=== PATIENT | female | born 1970 | race Caucasian/White ===

== ENCOUNTER 2025-06-29 13:35 | Inpatient (IN) | payer OTHER, SELFPAY ==
[2025-06-29 09:16] VITALS: BP 124/78; BMI 30.1
--- NOTE | 2025-06-29 09:28 | ED.MUSCINJ ---
HPI-Injury
General
Chief Complaint: Fall
Source: patient and ambulance crew
Exam Limitations: none
Time Seen by Provider: 06/29/25 09:18
Nursing documentation reviewed up to this point in time: agreed with
History of Present Illness-Injury
Initial Injury comments:
Note:
CHIEF COMPLAINT(S)
Right arm pain following a fall.
HISTORY OF PRESENT ILLNESS
The patient is a 54-year-old female who presents with pain in the right arm following a recent fall. While walking into a room, the patient had her right arm extended and fell, causing the arm to be pulled behind her. She reports that the injury
appeared to have displaced the arm to a significant extent, causing immediate pain and loss of mobility, particularly in the upper arm and elbow region. The patient describes the sensation as her arm having 'a mind of its own' indicating loss of
voluntary control. Pain is mainly localized to the upper arm and elbow, although she denies significant shoulder discomfort. Upon examination, there is noticeable swelling in the upper arm, specifically around the region where a fracture of the
humerus is suspected. The patient experiences discomfort upon palpation in this area.
SOCIAL HISTORY
The patient reports having a sensitive stomach, which might be exacerbated by certain medications.
ALLERGIES
The patient denies allergies but notes having a sensitive stomach.
PHYSICAL EXAM
General: Alert, no acute distress.
Skin: Warm, dry.
Head: Normocephalic, atraumatic.
Neck: Supple, trachea midline.
Eyes, Ears, Nose, and Throat: Oral mucosa moist.
Cardiovascular: Normal peripheral perfusion, No edema.
Respiratory: Respirations are non-labored.
Gastrointestinal: Abdomen nondistended
Back: Normal range of motion, Normal alignment.
Musculoskeletal: Tenderness and swelling noted in the right upper arm, suggestive of a fracture. Normal range of motion in other areas.
Neurological: Alert and oriented to person, place, time, and situation, No focal neurological deficit observed.
Psychiatric: Cooperative, appropriate mood & affect.
PLAN
- Obtain x-rays of the right arm to assess for fractures, specifically at the upper arm or humerus.
- Administer Zofran (ondansetron) for nausea due to sensitivity to medications and prepare to administer morphine for pain management.
- Evaluate for possible elbow involvement or shoulder dislocation based on imaging.
- Monitor the patient closely for signs of increased pain or swelling.
DIFFERENTIAL DIAGNOSIS
The Differential Diagnosis includes, in no particular order and is not limited to:
1. Humerus fracture
2. Elbow dislocation
3. Shoulder dislocation
4. Soft tissue injury or contusion
5. Ligament sprain or tear
6. Radial head fracture
7. Olecranon fracture
8. Tendon injury or rupture
9. Rotator cuff injury
10. Nerve injury secondary to trauma (e.g., radial nerve injury)
CARE-UPDATE
06/29/25 - 10:45
X-ray indicates angulated distal-right humeral diaphyseal fracture. Discussed plan with orthopedics, Dr. Juan, who will perform surgery tomorrow and place a coaptation splint post-operatively.
Disposition:
SUMMARY OF ENCOUNTER
The patient is a 54-year-old female who presented to the emergency department with significant pain in the right arm following a fall. The physical examination indicated swelling and tenderness in the upper arm, raising suspicion for a fracture. An
x-ray confirmed an angulated fracture of the distal right humeral diaphysis. The patient reported having a sensitive stomach, impacting the choice of medications. Pain was managed cautiously with morphine and ondansetron for nausea. Consulting
orthopedics, a plan was made for surgical intervention the following day, with a CT scan requested pre-operatively to further evaluate the injury.
DISPOSITION
Admit to hospitalists.
ASSESSMENT
The patient has an acute angulated distal right humeral diaphyseal fracture with good condition; nerve-vascular integrity is maintained, and there are no signs of compartment syndrome.
MANAGEMENT OF THE PATIENTS CARE WAS DISCUSSED WITH
Dr. Juan in orthopedics, who will conduct surgical repair and procedure planning.
PLAN
Orthopedics to conduct surgery on the fractured distal humerus tomorrow. A CT scan has been requested pre-operatively. Continue pain management to ensure the patient remains comfortable until surgery.
INDEPENDENT REVIEW OF LABS AND INTERPRETATION OF TESTS
My independent interpretation of the X-ray indicates an angulated distal-right humeral diaphyseal fracture.
MEDICATION RECONCILIATION
Administered medications include ondansetron for nausea and morphine for pain management.
MEDICAL DECISION MAKING
Number and Complexity of Problems Addressed:
Chronic conditions affecting care: The patient reports a sensitive stomach which requires careful consideration of medications administered. Differential diagnosis includes humerus fracture, elbow dislocation, shoulder dislocation, soft tissue
injury, ligament sprain/tear, radial head fracture, olecranon fracture, tendon injury, rotator cuff injury, and nerve injury.
Data:
Category 1
- X-ray independently interpreted, confirming a distal humeral diaphyseal fracture.
Category 3
- Discussion of management with Dr. Juan in orthopedics regarding surgical intervention.
Risk:
Prescription medication management for pain control with morphine and antiemetic ondansetron due to the patients sensitive stomach. Surgery planned for fracture repair.
DIAGNOSIS
Angulated distal-right humeral diaphyseal fracture (ICD-10: S42.499A).
Past History
Past History
ED Past Medical History: Other (Pre eclampsia); Negative Asthma, CAD or Cancer
ED Past Surgical History: ; Negative Appendectomy, Bowel resection or Brain
Social History
Tobacco: Non-smoker
Alcohol: Occasional
Drug: Former user
Personal:
Living: with family
Employment: Employed
Family History
Family History: Negative Diabetes, Hypertension, Early CAD, CAD, Asthma or Cancer
Phy Exam
Physical Exam
Physical Exam:
.
Injury Course
Orders/Labs/Results
Orders:
Orders
06/29/25 09:25
Morphine Sulfate 4 mg IV NOW STA
Ondansetron Injectable [Zofran] 4 mg IV NOW STA
CR Elbow - Right Min 2 View Urgent
Reason For Exam: right distal humerus/elbow pain, fall
Humerus, Right 2 Views [CR Humerus - Right Min 2 View*] Urgent
Comment:
Reason For Exam: right distal humerus/elbow pain, fall
06/29/25 10:25
IV Insert/Care/Rem.- Treatment PRN
Splints/Slings/Crut- Treatment ONCE
Location: Right
Type of Splint: Other
Comment: co-aptation splint
06/29/25 10:26
CT Upper Ext W/o Iv Cont Rt Urgent
Comment:
Reason For Exam: right humerus pain, swelling, fracture seen
06/29/25 10:46
Dicyclomine [Bentyl] 20 mg PO NOW STA
06/29/25 11:05
Type+Screen Urgent
Complete Blood Count/With Diff Urgent
06/29/25 11:07
HYDROmorphone [Dilaudid] 1 mg IV NOW STA
06/29/25 11:32
Basic Metabolic Panel Urgent
06/29/25 12:55
HYDROmorphone [Dilaudid] 0.5 mg IV NOW STA
06/29/25 12:58
Admit/Transfer Patient As Directed
Co-Sign Provider:
Level of Care: Inpatient admission
Assign to:: Medical/Surgical
Physician / Group: Mikayla Ruiz
Diagnosis: right displaced humerus fracture
Reason for Hospitalization: right displaced humerus fracture
Expected length of stay greater than two midnights?: Yes
ELOS- Estimated Length of Stay in days: 3
I certify the patient meets the requirements for IP care: Yes
PRN Pain Medication Management As Directed
May give lesser potent ordered pain med per pt: Yes
preference::
Protocol:: Medication orders for pain may be administered in a
manner that supports deferring to patient preference
when the pt is:
- Requesting an ordered lesser potent pain medication.
Least to most potent pain medications are defined
as: acetaminophen < NSAID < tramadol < opioids
(morphine, oxycodone, hydromorphone).
- Requesting a lesser dose of the same medication IF
ORDERED.
- Requesting a less intrusive route of administration
if both routes are prescribed by the provider (PO <
IV).
06/29/25 12:59
Code Status As Directed
Resuscitation Status: Full Code
06/29/25 13:01
EKG [Electrocardiogram (*1)] Routine
Reason for Study: QTc Monitoring
06/30/25 Breakfast
NPO
Allow oral meds: Yes
Allow clear liquids: Sips of Clears
NPO for procedure after (time): after mn for OR 06/30
CeFAZolin 2 GRAM [Ancef] 2 grams in 10 ml IV PRE PROCEDURE
Abnormal Lab Results
06/29/25
11:05
WBC 14.5 H 10^3/uL
(4.8-10.8)
MCHC 32.1 L g/dL
(33.0-37.0)
RDW 14.8 H %
(11.5-14.5)
Plt Count 410 H 10^3/uL
(130-400)
Abs Immat Gran (auto) 0.1 H 10^3/uL
(0-0.05)
Absolute Neuts (auto) 12.4 H 10^3/uL
(1.4-6.5)
Immature Gran % 0.6 H %
(0-0.5)
Neutrophils % 85.2 H %
(42.2-75.2)
Lymphocytes % 9.2 L %
(20.5-51.1)
06/29/25 11:05
Procedures
Splinting/Sling Placement
Right Upper Arm:
Procedure completed by: Tee/Ania
Pre-splint extermity exam: good alignment
Type of splint: other (Co aptation splint)
Splint material: fiberglass
Splint checked by provider?: Yes
Type of sling: sling fitted
Normal distal neurovascular exam?: Yes
*Pulse Oximetry
SaO2: 100
Oxygen Mode of Delivery: Room air
Patient hypoxic: no
*Critical Care Note
Total Time (30-74mins, 75-104mins- exclusive of procedures): Not Applicable
ED Attending Note
-
Portions of this chart may have been created with voice recognition software.� Occasional wrong word or��sound alike� substitutions may have occurred due to the inherent limitations of voice recognition software.
Discharge Plan
Departure
Patient Disposition: Admit
Date of Disposition: 06/29/25
Time of Disposition: 10:27
Admit to: Med/Surg
Presentation/result/management discussed w/ accepting MD/DO: Hospitalist
Patient with high blood pressure during this ER visit?: Yes
Condition: Good
Discharge Problem:
Closed right humeral fracture
Interventions
Interventions:
*General Assessment Last Done: 06/29/25 09:16
*Neglect/Abuse Screening Last Done: 06/29/25 09:35
ED-Musculoskeletal Assessment Last Done: 06/29/25 09:23
ED- Neurological Assessment Last Done: 06/29/25 09:23
ED-Skin Assessment Last Done: 06/29/25 09:23
[2025-06-29] MEDS: MORPHINE SULFATE 4 MG IV (09:33)
[2025-06-29] MEDS: ZOFRAN 4 MG IV ×2 (09:33→21:15)
[2025-06-29] MEDS: BENTYL 20 MG PO ×2 (11:10→16:47)
[2025-06-29] MEDS: DILAUDID 1 MG IV ×4 (11:17→22:54)
[2025-06-29 11:18] LABS: Hematocrit 40.5 % (37.0-47.0); Hemoglobin 13.0 g/dL (12.0-16.0); Mean Corp Hgb Conc. 32.1 g/dL (33.0-37.0); Mean Corpuscular Volume 84.7 fL (81.0-99.0); Nucleated Red Blood Cells % 0 %; Platelet Count 410 10^3/uL (130-400); Red Cell Dist. Width 14.8 % (11.5-14.5)
--- NOTE | 2025-06-29 12:06 | CON.ORTHO ---
Consultation
-
Date/Time Consultation Requested: 06/29/2025; time unknown
Date/Time Consultation Performed: 06/29/2025; 1200
Requesting Provider: Marquise Oliveira
Performing Provider: Phoebe Barcenas PA-C for Dr. Addie Coronel
Reason for Consultation: Right humerus fracture
Consultation - Orthopedics
History
Ms. Cee is a 54 year old female with PMH of HTN and migraines seen today for her right arm. Her family members are at the bedside. She reports she slipped on leaves while walking into work today and landed with her arm outstretched behind her.
She reports immediate onset of pain, and loss of voluntary movement of the arm. She was brought to via EMS where x-rays revealed a humeral shaft fracture. She does report quite a bit of pain and discomfort at present. She denies pain elsewhere.
She lives independently and works as a clinical social worker. She denies PMH of DVT, CVA, IL or DM. She denies known history of difficulty with anesthesia.
Allergies / Home Medications
Allergy/AdvReac Type Severity Reaction Status Date / Time
shellfish derived Allergy Unknown Verified 06/29/25 09:24
�Medication �Instructions �Recorded
amlodipine 5 mg tablet (Norvasc) 5 mg PO DAILY Blood Pressure 06/29/25
aeaorynors-nplfqjgiuddni-lofkoxrn 1 cap PO TIDPRN PRN migraines 06/29/25
50 mg-300 mg-40 mg capsule
dicyclomine 20 mg tablet 20 mg PO TID 06/29/25
loratadine 10 mg tablet (Claritin) 10 mg PO DAILY Allergies 06/29/25
omeprazole 40 mg capsule,delayed 40 mg PO DAILY Gastrointestinal 06/29/25
release Issue
sertraline 50 mg tablet 50 mg PO DAILY Mental 06/29/25
Health/Anxiety
triprolidine-pseudoephedrine 2.5 1 tab PO DAILY Allergies 06/29/25
mg-60 mg tablet
ubrogepant 100 mg tablet (Ubrelvy) 100 mg PO DAILYPRN PRN migraine 06/29/25
Vital Signs / Lab Results
Pulse Resp BP Pulse Ox
63 16 124/78 100
06/29/25 09:16 06/29/25 09:16 06/29/25 09:16 06/29/25 09:30
06/29/25 11:05
XR Right Humerus Findings:
There is an oblique fracture through the distal third of the right humeral diaphysis with apex posterior angulation. Minimally comminuted with some very small fracture fragments. No clear displacement on the provided projections. Shoulder joint is
maintained. Elbow joint is grossly maintained. No elbow joint effusion is identified. No other fracture is identified. No radiopaque foreign body. There is soft tissue swelling associated with the humeral fracture.
CT Right Upper Extremity IMPRESSION:
1. Angulated, displaced distal right humeral fracture as described.
2. Small right lung pulmonary nodules as above. The largest of these measures 4 mm in diameter. Given the size, likely to have a benign etiology. If there are significant risk factors, consider follow-up scan in 12 months as below.
Directed exam of the right upper extremity reveals splint intact to upper arm. Shoulder immobilizer in place. Tenderness to palpation generally about the upper arm. Shoulder and elbow ROM deferred secondary to known fracture. Patient able to extend
thumb and wrist. Sensation intact to light touch. Capillary refill <2 seconds.
Assessment / Plan
Right humeral shaft fracture
--Unfortunately, Tracie sustained a humeral shaft fracture in her fall. I recommend proceeding with open reduction internal fixation of her fracture. The risks, benefits, alternatives, recovery process and potential complications were discussed in
detail. She verbalized understanding and would like to proceed with surgical intervention. This is tentatively planned for tomorrow under the direction of Dr. Juan. Surgical and blood consents signed and scanned into patient chart. Paper copy at
OR desk.
--Continue with immobilization in splint and shoulder immobilizer until surgery.
--Pain control prn.
--NPO after midnight for OR tomorrow.
--Ice prn for pain and edema control.
--Antibiotics ordered to OR.
--Orthopedics will continue to follow along.
--- NOTE | 2025-06-29 12:38 | HPS.HSE ---
Family Physician
-
Family Physician: Nacho Mandujano
Chief Complaint
-
right arm pain post fall
History of Present Illness
Ms. Tracie Cee is a 54 yo woman with hx essential HTN, Depression presents to the ER after she fell on her outstretched arm.
Patient was walking into work when tripped over wet leaves and fell on outstretched arm resulting in significant pain in her right arm. She was able to call for help and EMS arrived.
No recent fevers/chills. No cough/congestion. No chest pain. No abdominal pain. She felt nauseated post Morphine, felt OK post Dilaudid. No LE swelling.
Medical History
Past Medical History
Past Medical History: Reports Other (essential HTN, Depression)
Past Surgical History: Reports Gynocological
Social History
Tobacco: Former Smoker
Alcohol: Former
Family History
Family History: Not pertinent
Allergies / Home Medications
Allergies reflects when Allergies were last updated in [facility].
Home Medications with original date entered in [facility]
Allergy/Medication List:
Allergies
Allergy/AdvReac Type Severity Reaction Status Date / Time
shellfish derived Allergy Unknown Verified 06/29/25 09:24
Home Medications
amlodipine 5 mg tablet (Norvasc) 5 mg PO DAILY Blood Pressure 06/29/25
oiminjfxry-juajlxppgtwtk-rdbuvtan 50 mg-300 mg-40 mg capsule 1 cap PO TIDPRN PRN migraines 06/29/25
dicyclomine 20 mg tablet 20 mg PO TID 06/29/25
loratadine 10 mg tablet (Claritin) 10 mg PO DAILY Allergies 06/29/25
omeprazole 40 mg capsule,delayed release 40 mg PO DAILY Gastrointestinal Issue 06/29/25
sertraline 50 mg tablet 50 mg PO DAILY Mental Health/Anxiety 06/29/25
triprolidine-pseudoephedrine 2.5 mg-60 mg tablet 1 tab PO DAILY Allergies 06/29/25
ubrogepant 100 mg tablet (Ubrelvy) 100 mg PO DAILYPRN PRN migraine 06/29/25
Review of Systems
-
History Source: Patient
A 12 point ROS was completed and negative except as noted: Yes
Physical Exam
Vital Signs
Vital Signs
Pulse Resp BP Pulse Ox
63 16 124/78 100
06/29/25 09:16 06/29/25 09:16 06/29/25 09:16 06/29/25 09:30
Physical Exam
General: No Apparent Distress
HEENT: PERRLA
Respiratory: Clear; No Wheezes
Cardiac: S1/S2 and Regular Rhythm
GI: Soft and Non Tender
Musculoskeletal: Other (right arm in wrap and sling )
Skin: Warm and Dry; No Rash
Neuro: AO x 3
Psych: Calm
Laboratory Results
-
06/29/25 11:05
Data Reviewed
-
Diagnostic Radiology: Report Reviewed by me
Lab Data: Labs Reviewed by me
Impression/Plan
-
Ms. Tracie eCe is a 54 yo woman with hx essential HTN, Depression presents to the ER after she fell on her outstretched arm.
Triage VS stable
LABS: WBC 14.5, Hg 13, PLT 410,
Humerus and Elbow X-Ray
IMPRESSION: Angulated distal right humeral diaphyseal fracture as above.
Upper Extremity CT
IMPRESSION:
1. Angulated, displaced distal right humeral fracture as described.
2. Small right lung pulmonary nodules as above. The largest of these measures 4 mm in diameter. Given the size, likely to have a benign etiology. If there are significant risk factors, consider follow-up scan in 12 months as below.
Displaced Distal Right Humeral Fracture
-admit to med/surg
-appreciate ortho
-plan for OR tomorrow mid-afternoon
-fluids in AM
-pain control: standing Tylenol and IV Dilaudid PRN
-obtain pre-op EKG and to monitor QTc
Small pulmonary nodules
-likely benign, consider repeat CT in 12 months
Essential HTN
-hold EDUCATION RESEARCH ANALYST Amlodipine pre-op
IBS
-EDUCATION RESEARCH ANALYST Dicyclomine
GERD
-EDUCATION RESEARCH ANALYST PPI
Depression
-EDUCATION RESEARCH ANALYST Zoloft
DVT PPx SCD
FULL CODE
--- NOTE | 2025-06-29 12:44 | CM ---
CM met with pt, /Chinyere, and dtr/Yadira bedside
They reside in a [address] with 12 CAPRI (5+5+1+threshold), full flight to 2nd floor
Pt is indep with her ADLs, no ADs, drives
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
Pt denied use of DMEs and financial insecurities
PCP- Nacho Mandujano
Rx- [facility] [place]
Pt planned for ORIF R. humerus tomorrow
Injury occurred at work- she has already outreached to agency
Awaiting assigned coordinator and case#
Of note, pt is left handed
Discharge Disposition- anticipate home, follow for possible therapy needs on dc
[2025-06-29] MEDS: DILAUDID 0.5 MG IV (13:19)
[2025-06-29 16:17] VITALS: BP 126/69; BMI 29.9
[2025-06-29] MEDS: TYLENOL 1000 MG PO (16:47)
--- NOTE | 2025-06-29 17:03 | PTCARENOTE ---
Received pt into 2109 with a right humerus fx. VSS, pt states that pain is managed at this time. Right arm in splint and sling. Assessment as documented, call shaw within reach, family and pt oriented to room and plan of care.
[2025-06-29 23:00] VITALS: BP 122/68
[2025-06-29 23:42] LABS: Blood Urea Nitrogen 4 mg/dl (7-17); Calcium 9.6 mg/dl (8.4-10.2); Carbon Dioxide 30 mmol/L (22-30); Chloride 100 mmol/L (98-107); Estimated Creatinine Clearance 107 ml/min; Glucose 113 mg/dl (70-99); Potassium 4.1 mmol/L (3.5-5.1); Sodium 133 mmol/L (135-145); eGFR > 60.00
[2025-06-29] MEDS: TYLENOL PO (23:56)
[2025-06-30] VITALS (8 sets, daily range): BP systolic 116–138; BP diastolic 53–83
[2025-06-30] MEDS: DILAUDID 1 MG IV (03:39)
[2025-06-30] MEDS: FIORICET 1 TAB PO ×3 (06:24→19:33)
[2025-06-30] MEDS: BENTYL 20 MG PO ×2 (06:25→18:33)
[2025-06-30] MEDS: ZOFRAN 4 MG IV ×2 (07:13→17:31)
--- NOTE | 2025-06-30 07:20 | W.PN.UPDATE ---
Update Note
Progress Note Update
54F right displaced diaphyseal humerus fracture
--Continue with immobilization in splint and shoulder immobilizer until surgery.
--Pain control prn.
--OR today
--Ice prn for pain and edema control.
--Antibiotics OCTOR
--will update orders postop
[2025-06-30 07:52] LABS: Hematocrit 36.4 % (37.0-47.0); Hemoglobin 12.1 g/dL (12.0-16.0); Mean Corp Hgb Conc. 33.2 g/dL (33.0-37.0); Mean Corpuscular Volume 80.9 fL (81.0-99.0); Platelet Count 390 10^3/uL (130-400); Red Cell Dist. Width 14.3 % (11.5-14.5)
[2025-06-30 08:26] LABS: Blood Urea Nitrogen 5 mg/dl (7-17); Calcium 9.3 mg/dl (8.4-10.2); Carbon Dioxide 27 mmol/L (22-30); Chloride 103 mmol/L (98-107); Estimated Creatinine Clearance 107 ml/min; Glucose 120 mg/dl (70-99); Magnesium 1.9 mg/dl (1.6-2.3); Potassium 4.2 mmol/L (3.5-5.1); Sodium 137 mmol/L (135-145); eGFR > 60.00
--- NOTE | 2025-06-30 09:05 | W.PN.HOSP.TC ---
Today's Communication/Plan
-
NPO for OR
IVF
pain and nausea symptomatic management
Assessment / Plan
Assessment / Plan
Ms. Tracie Cee is a 54 yo woman with hx essential HTN, Depression presents to the ER after she fell on her outstretched arm.
Triage VS stable
LABS: WBC 14.5, Hg 13, PLT 410,
Humerus and Elbow X-Ray
IMPRESSION: Angulated distal right humeral diaphyseal fracture as above.
Upper Extremity CT
IMPRESSION:
1. Angulated, displaced distal right humeral fracture as described.
2. Small right lung pulmonary nodules as above. The largest of these measures 4 mm in diameter. Given the size, likely to have a benign etiology. If there are significant risk factors, consider follow-up scan in 12 months as below.
Displaced Distal Right Humeral Fracture
-admitted to med/surg
-appreciate ortho
-plan for OR tomorrow mid-afternoon
-pain control: PRN Tylenol (so she can receive Fiorcet) and IV Dilaudid PRN
-obtain pre-op EKG and to monitor QTc
Nausea/Vomiting - opiate induced
-IV Zofran PRN
-use lower doses opiates/ motrin post-op
-NS 500cc bolus x 1 now, continue IVF
Small pulmonary nodules
-likely benign, consider repeat CT in 12 months
Essential HTN
-hold TRAUMA DOCTOR Amlodipine pre-op
IBS
-TRAUMA DOCTOR Dicyclomine
GERD
-TRAUMA DOCTOR PPI
Depression
-TRAUMA DOCTOR Zoloft
DVT PPx SCD
FULL CODE
Anticipated Discharge: Within 24 hours
Subjective/Interval History
-
Date of Service: June 30, 2025
patient in pain
she had nausea/vomiting overnight 2/2 dilaudid, received Dilaudid
headache that is improving with IVF
Objective Data
-
Labs:
Laboratory Results
06/29/25 06/30/25
23:09 06:48
WBC 7.2
Hgb 12.1
Hct 36.4 L
Plt Count 390
Sodium 133 L 137
Potassium 4.1 4.2
Chloride 100 103
Carbon Dioxide 30 27
BUN 4 L 5 L
Creatinine 0.5 L 0.5 L
Glucose 113 H 120 H
Calcium 9.6 9.3
Vital Signs:
Vital Signs
Temp Pulse Resp BP Pulse Ox
98.1 F 69 17 125/72 98
06/30/25 07:33 06/30/25 07:33 06/30/25 07:33 06/30/25 07:33 06/30/25 07:33
Review of Systems
-
History Source: Patient
All other systems: Reviewed and negative
Physical Exam
-
General: No Apparent Distress
HEENT: PERRLA
Respiratory: Clear to Auscultation; Negative Wheezes
Cardiac: Regular Rhythm and S1/S2
GI: Soft, Nontender and Nondistended
Musculoskeletal: No Edema and Other (right arm in sling)
Skin: Warm and Dry; Negative Rash
Neuro: AO x 3
Psych: Calm
Data Reviewed
-
Diagnostic Radiology: Report Reviewed by me
Labs: Labs Reviewed by me
[2025-06-30] MEDS: D5LR 1000 IV ×2 (09:26→11:19)
[2025-06-30] MEDS: ZOLOFT PO (09:29)
[2025-06-30] MEDS: TYLENOL PO (09:31)
--- NOTE | 2025-06-30 09:45 | PTCARENOTE ---
Patient c/o headache, mild nausea and vomiting multiple times over night. Physician at bedside, order obtained for IV Protonix, Fioricet, and 500ml Bolus now. Patient repositioned, ice applied to right arm, meds given with a sip of water. Daughter
at bedside.
[2025-06-30] MEDS: NSS (PRESERVATIVE FREE) 10 ML IV (10:06)
[2025-06-30] MEDS: PROTONIX IV 40 MG IV (10:06)
[2025-06-30] MEDS: NSS 500 IV (10:07)
--- NOTE | 2025-06-30 11:15 | PTCARENOTE ---
Patient states, 'I fell much better. My headache is mostly gone and I am not nauseous anymore.' Patient was able to get OOb with min assist and void in bathroom. Spouse at bedside.
[2025-06-30] MEDS: BENTYL PO (11:23)
--- NOTE | 2025-06-30 14:25 | PTCARENOTE ---
Patient taken to OR, report given to Pattie.
--- NOTE | 2025-06-30 14:29 | CM ---
CM following re: discharge planning.
Reviewed pt's chart, met with pt.
Pt admitted with displaced Distal Right Humeral Fracture, NPO, OR today.
Per CM note, awaiting for case number from WC team.
D/C plan: home with anticipated no needs.
[2025-06-30] MEDS: ANCEF 10 IV (15:20)
--- NOTE | 2025-06-30 18:23 | PTCARENOTE ---
Received patient at 1815 from PACU. Patient AAOx3, c/o mild nausea and headache. Zofran given in PACU. Patient ambulating to bathroom with supervision and voided without difficulty. patient RUE in sling, ice applied. Patient tolerating sips of
bobbi baldemar. Patient sitting up in chair, family at bedside.
[2025-06-30] MEDS: LOW STRENGTH ASPIRIN 81 MG PO (18:33)
[2025-06-30] MEDS: ANCEF 5 IV (22:05)
[2025-07-01] MEDS: BENTYL 20 MG PO ×3 (00:20→12:12)
[2025-07-01 03:03] VITALS: BP 126/67
[2025-07-01] MEDS: ANCEF 5 IV (05:23)
[2025-07-01] MEDS: ZOFRAN 4 MG IV (05:37)
[2025-07-01] MEDS: ROXICODONE 10 MG PO ×3 (05:47→15:31)
--- NOTE | 2025-07-01 06:08 | W.PN.HOSP.TC ---
Today's Communication/Plan
-
Discharge
Assessment / Plan
Assessment / Plan
Physical exam
General: No Apparent Distress
HEENT: PERRLA
Respiratory: Clear to Auscultation; Negative Wheezes
Cardiac: Regular Rhythm and S1/S2
GI: Soft, Nontender and Nondistended
Musculoskeletal: Edema (right arm in sling)
Skin: Warm and Dry; Negative Rash
Neuro: AO x 3 conversant coherent
Psych: Calm
Ms. Tracie Cee is a 54 yo woman with hx essential HTN, Depression presents to the ER after she fell on her outstretched arm.
Triage VS stable
LABS: WBC 14.5, Hg 13, PLT 410,
Humerus and Elbow X-Ray
IMPRESSION: Angulated distal right humeral diaphyseal fracture as above.
Upper Extremity CT
IMPRESSION:
1. Angulated, displaced distal right humeral fracture as described.
2. Small right lung pulmonary nodules as above. The largest of these measures 4 mm in diameter. Given the size, likely to have a benign etiology. If there are significant risk factors, consider follow-up scan in 12 months as below.
Displaced Distal Right Humeral Fracture
-Ortho eval appreciated s/p ORIF 06/30/25
-Non-weight bearing to right upper extremity. Sling for immobilization and comfort. May loosen/remove the sling when sedentary.
-Pain control prn. Ice prn for pain and edema control.
-Maintain surgical dressing until 2 week post-op visit.
-PT/OT appreciated no needs
Nausea/Vomiting - opiate induced
-IV Zofran PRN
-use lower doses opiates/ motrin post-op, tolerating po oxycodone
Small pulmonary nodules
-likely benign, consider repeat CT in 12 months
Essential HTN
-EXTRUSION TECHNICIAN Amlodipine held pre-op
-BP remains well controlled without, cont hold for now
IBS
-EXTRUSION TECHNICIAN Dicyclomine
GERD
-EXTRUSION TECHNICIAN PPI
Depression
-EXTRUSION TECHNICIAN Zoloft
DVT PPx SCD
FULL CODE
Medically stable for discharge home with outpatient follow up recommendations.
Discussed with patient and patient's spouse Chinyere
Total Time Preparing Discharge ___40____ minutes including examination of the patient, summary of the hospital stay, instructions for continuing care to all relevant caregivers; and preparation of discharge records, prescriptions, and referral
forms if necessary.
Anticipated Discharge: Today
Subjective/Interval History
-
Date of Service: July 01, 2025
Seen and examined at bedside, overall reports feeling well, pain well controlled. Ambulatory without need for assist device. Spouse Chinyere present during evaluation.
Objective Data
-
Labs:
Laboratory Results
07/01/25
06:00
WBC Pending
Hgb Pending
Hct Pending
Plt Count Pending
Sodium Pending
Potassium Pending
Chloride Pending
Carbon Dioxide Pending
BUN Pending
Creatinine Pending
Glucose Pending
Calcium Pending
Vital Signs:
Vital Signs
Temp Pulse Resp BP Pulse Ox
98.6 F 77 16 126/67 93
07/01/25 03:03 07/01/25 03:03 07/01/25 03:03 07/01/25 03:03 07/01/25 03:03
I&O
06/29/25 06/30/25 07/01/25
06:59 06:59 06:59
Intake Total 0 / 2220
Balance 2219 / 2219
[2025-07-01 07:05] LABS: Hematocrit 32.7 % (37.0-47.0); Hemoglobin 10.4 g/dL (12.0-16.0); Mean Corp Hgb Conc. 31.8 g/dL (33.0-37.0); Mean Corpuscular Volume 84.7 fL (81.0-99.0); Platelet Count 334 10^3/uL (130-400); Red Cell Dist. Width 14.6 % (11.5-14.5)
[2025-07-01 07:32] LABS: Blood Urea Nitrogen 5 mg/dl (7-17); Calcium 9.3 mg/dl (8.4-10.2); Carbon Dioxide 27 mmol/L (22-30); Chloride 104 mmol/L (98-107); Estimated Creatinine Clearance 107 ml/min; Glucose 115 mg/dl (70-99); Potassium 3.7 mmol/L (3.5-5.1); Sodium 136 mmol/L (135-145); eGFR > 60.00
[2025-07-01 07:35] VITALS: BP 125/65
[2025-07-01] MEDS: PROTONIX IV IV (08:39)
[2025-07-01] MEDS: NSS (PRESERVATIVE FREE) IV (08:39)
[2025-07-01] MEDS: ZOLOFT 50 MG PO (08:39)
[2025-07-01] MEDS: LOW STRENGTH ASPIRIN 81 MG PO (08:39)
[2025-07-01] MEDS: TYLENOL 1000 MG PO ×2 (09:01→16:50)
--- NOTE | 2025-07-01 09:01 | W.PN.UPDATE ---
Update Note
Progress Note Update
Ms. Cee is POD 1 following her ORIF right humeral shaft fracture performed by Dr. Juan. She is resting comfortably in bed this morning. She reports minimal pain in the arm at present, but does state the block has started to wear of slightly.
Directed exam of the right upper extremity reveals surgical dressing clean, dry and intact. Expected post-operative edema about the right upper extremity. Patient able to wiggle fingers, but block still intact. Sensation mildly diminished throughout
distally secondary to block. Capillary refill <2 seconds.
54 yo F POD1 ORIF right humeral shaft fracture under the direction of Dr. Juan
--Non-weight bearing to right upper extremity. Sling for immobilization and comfort. May loosen/remove the sling when sedentary.
--Pain control prn. Ice prn for pain and edema control.
--Patient may work on gentle motion of the wrist and hand once block has worn off. Monitor for any radial nerve palsy.
--Maintain surgical dressing until 2 week post-op visit.
--Case management consult for dc planning.
--Orthopedics will continue to follow along.
[2025-07-01 10:40] VITALS: BP 117/67; PULSE 72; O2SAT 95
[2025-07-01 11:08] VITALS: BP 117/67; PULSE 72; O2SAT 95
[2025-07-01 11:15] VITALS: BP 122/71
--- NOTE | 2025-07-01 13:12 | PTOTSP ---
PATIENT ABLE TO MOBILIZE INDEPENDENTLY ON LEVEL SURFACES WELL ELEVATIONS WITHOUT A DEVICE. PATIENT INSTRUCTED ON BED MOBILITY WELL CAR TRANSFER. PATIENT WITHOUT FURTHER QUESTIONS REGARDING MOBILITY AT END OF SESSION. PATIENT LEFT IN
ROOM WITH O.T. WILL DISCHARGE FROM [facility]UTE [facility] P.T. SERVICES.
[2025-07-01 15:30] VITALS: BP 115/73
[2025-07-01] MEDS: BENTYL PO (17:00)
--- NOTE | 2025-07-01 17:37 | W.DCSUMMARY ---
Discharge Summary
Discharge Data
Date of Admission: 06/29/25
Date of Discharge: 07/01/25
-
Pending Results: No
Discharge Plan
-
Patient Disposition: Home (Routine Discharge)
Discharge Diagnosis/Procedures: Right Humerus displaced fracture status post open reduction internal fixation 06/30/25
Small Pulmonary Nodules suspect benign
Condition: Fair
Diet: Regular
Activity: Other activity
Additional Activity: Non-weight bearing to right upper extremity. Sling for immobilization and comfort. May loosen/remove the sling when sedentary.
Seated dressing/showering, shower hose and support for showering (avoid bathing at this time).
Driving Restrictions: Not until seen by your Dr
Bathing Restrictions: as noted in additional activity above
Others Tests: Obtain CT chest with primary care provider in 1 year of discharge to follow up pulmonary nodules, suspected benign.
Wound Care: Maintain surgical dressing until 2 week post-op visit.
Activity Restrictions/Additional Instructions:
Follow up with primary care provider in less than 1 week and Orthopedic in 2 weeks.
Referrals:
Nacho Mandujano MD [Family Provider, Internal Medicine] - in less than 1 week
Forrest Juan MD [Active, Orthopedics] - in two weeks
Prescriptions:
New
ondansetron 4 mg tablet,disintegrating
4 mg PO Q8H PRN (Reason: nausea and vomiting) 4 Days Qty: 10 0RF
oxycodone 10 mg Tablet
10 mg PO Q6HPRN PRN (Reason: moderate severe pain) Qty: 28 0RF
sennosides-docusate sodium 8.6-50 mg tablet
1 tab-cap PO BIDPRN PRN (Reason: Constipation) Qty: 14 0RF
Continued
omeprazole 40 mg Capsule,Delayed Release(Dr/Ec)
40 mg PO DAILY
triprolidine-pseudoephedrine 2.5-60 mg Tablet
1 tab PO DAILY
dicyclomine 20 mg Tablet
20 mg PO TID
sertraline 50 mg Tablet
75 mg PO DAILY
loratadine [Claritin] 10 mg Tablet
10 mg PO DAILY
zmtnxssaog-vjzpfbvmsvnbb-zaiy 50-300-40 mg Capsule
1 cap PO TIDPRN PRN (Reason: migraines)
Ubrelvy 100 mg Tablet
100 mg PO DAILYPRN PRN (Reason: migraine)
Held
amlodipine [Norvasc] 5 mg Tablet
5 mg PO DAILY
Hold Instructions: Blood pressure well controlled without during Hospital stay. Keep a daily blood pressure log at home and follow up with primary care provider to determine when to resume medication, if necessary to resume medication.
Discharge Orders:
Discharge Patient (As Directed); Ordered 07/01/25
Ordered By: Nacho Steward
Discharge Date and Time
Print Language: COMORAN
== END 2025-07-01 18:10 | disposition home or self-care (01) | DRG 494 ==
LOC: 2 SOUTH 13:35
PROVIDERS: ADMITTING PHYSICIAN Student in an Organized Health Care Education/Training Program; ATTENDING PHYSICIAN Internal Medicine; CONSULT PHYSICIAN Orthopaedic Surgery Hand Surgery; EMERGENCY PHYSICIAN Emergency Medicine; FAMILY PHYSICIAN Internal Medicine
PROC: 0PSF04Z Reposition Right Humeral Shaft with Internal Fixation Device, Open Approach (ICD-10-PCS; 2025-06-30)
DX: S42.401A Unspecified fracture of lower end of right humerus, initial encounter for closed fracture (principal); R91.8 Other nonspecific abnormal finding of lung field; R91.1 Solitary pulmonary nodule; W01.0XXA Fall on same level from slipping, tripping and stumbling without subsequent striking against object, initial encounter; F32.A Depression, unspecified; Z87.891 Personal history of nicotine dependence; Z79.899 Other long term (current) drug therapy
CPT/HCPCS: 29105; 73060; 73070; 73200; 76000; 80048; 83735; 85025; 85027; 86850; 86900; 86901; 93005; 96374; 96375; 97116; 97162; 97166; 97535; 99285